=== PATIENT | female | born 1960 | race African-American/Black ===

== ENCOUNTER 2020-06-16 21:40 | Inpatient (IN) | payer MEDICARE ==
[~2020-06-16] VITALS: Ht 149.9 cm; Wt 86.3 kg
[2020-06-16] MEDS ORDERED: SODIUM CHLORIDE 0.9% 1,000 ML IV ONE (23:45)
[2020-06-17 00:05] LABS: BASOPHILS % 1.1 % (0.0-2.0); EOSINOPHILS % 0.8 % (0.0-5.0); HEMATOCRIT. 31.9 % (36.0-48.0); HEMOGLOBIN. 10.6 g/dL (12.0-16.0); LYMPHOCYTES % 26.3 % (20.0-50.0); MEAN CORPUSCULAR HEMOGLOBIN 24.4 pg (28.0-32.0); MEAN CORPUSCULAR VOLUME 73.3 fL (81.0-99.0); MEAN PLATELET VOLUME 8.1 fl (7.4-10.4); NEUTROPHILS % 63.8 % (40.0-76.0); PLATELET 207 x1000/uL (130-400); RED BLOOD CELL COUNT 4.35 mill/uL (4.2-5.4)
[2020-06-17 00:10] LABS: CHLORIDE 108 mEq/L (98-107)
[2020-06-17 00:14] LABS: ETHANOL BLOOD < 10 mg/dL
[2020-06-17 03:37] LABS: CLARITY URINE CLEAR (CLEAR); COLOR URINE YELLOW (YELLOW); KETONES URINE TRACE (NEGATIVE); LEUKOCYTE ESTERASE URINE NEGATIVE (NEGATIVE); NITRITE URINE NEGATIVE (NEGATIVE); OCCULT BLOOD URINE NEGATIVE (NEGATIVE); PROTEIN URINE TRACE (NEGATIVE); SPECIFIC GRAVITY URINE 1.025 (1.005-1.030)
[2020-06-17 03:48] LABS: *AMPHETAMINES SCREEN URINE NEGATIVE (NEGATIVE); *BARBITURATES SCREEN URINE NEGATIVE (NEGATIVE); *BENZODIAZEPINES SCREEN URINE NEGATIVE (NEGATIVE); *COCAINE SCREEN URINE NEGATIVE (NEGATIVE); METHADONE URINE SCREEN NEGATIVE (NEGATIVE)
[2020-06-17 03:49] LABS: CANNABINOID URINE SCREEN NEGATIVE (NEGATIVE); OPIATES URINE SCREEN NEGATIVE (NEGATIVE); PHENCYCLIDINE URINE SCREEN NEGATIVE (NEGATIVE)
[2020-06-17] MEDS: DEXAMETHASONE 4MG/ML 1ML VIAL IV SCH ×3 (08:00→20:32)
[2020-06-17] MEDS ORDERED: NICARDIPINE 100 MG in SODIUM CHLORIDE 0.9% 60 ML IV PRN (08:00)
[2020-06-17] MEDS ORDERED: ONDANSETRON HCL 4MG/2ML INJ IV PRN (08:45)
[2020-06-17] MEDS ORDERED: ACETAMINOPHEN 325MG TABLET PO PRN (08:45)
[2020-06-17] MEDS ORDERED: DEXTROSE 50% WATER 50ML SYRINGE IV PRN (08:45)
[2020-06-17 09:00] VITALS: BP_SYST 143; BP_SYST 163; BP_DIAS 81
[2020-06-17] MEDS ORDERED: LEVETIRACETAM 500MG PREMIX 100 ML IV SCH (09:00)
[2020-06-17] MEDS ORDERED: POTASSIUM CHLORIDE INJ 40 MEQ in DEXT 5% WATER 250 ML IV NR (10:30)
[2020-06-17] MEDS ORDERED: GADOTERATE MEGLUMINE 5 MMOL/10 ML VIAL IV ONE (10:42)
[2020-06-17] MEDS ORDERED: OMEP10CA5 MT (10:57)
[2020-06-17] MEDS ORDERED: AMLO10TA80 MT (10:57)
[2020-06-17] MEDS ORDERED: GLIP10TA10 MT (10:57)
[2020-06-17] MEDS ORDERED: INSLIS SUBCUT (10:57)
[2020-06-17] MEDS ORDERED: METO100T16 MT (10:57)
[2020-06-17] MEDS ORDERED: METF-416 MT (10:57)
[2020-06-17] MEDS ORDERED: QUET25TA MT (10:57)
[2020-06-17] MEDS ORDERED: TRAZ-251 MT (10:57)
[2020-06-17] MEDS ORDERED: KEPP500 MT (10:57)
[2020-06-17] MEDS ORDERED: LOSA100T32 MT (10:57)
[2020-06-17 12:00] VITALS: BP 141/74
[2020-06-17] MEDS: BLOOD SUGAR DIAGNOSTIC STRIP TEST SCH ×3 (12:20→20:39)
[2020-06-17] MEDS: INSULIN LISPRO 100 UNITS/ML SUBCUT SCH ×3 (12:55→20:46)
[2020-06-17] MEDS: LEVETIRACETAM 500MG PREMIX 100 ML IV SCH ×2 (14:58→20:31)
[2020-06-17 16:00] VITALS: BP 143/80
[2020-06-17 22:20] VITALS: BP 126/63
[2020-06-18] MEDS: DEXAMETHASONE 4MG/ML 1ML VIAL IV SCH ×2 (01:41→08:32)
[2020-06-18 02:04] VITALS: BP 138/81
[2020-06-18] MEDS: BLOOD SUGAR DIAGNOSTIC STRIP TEST SCH ×4 (05:22→21:59)
[2020-06-18 06:48] LABS: CHLORIDE 106 mEq/L (98-107)
[2020-06-18 06:58] LABS: BASOPHILS % 0.4 % (0.0-2.0); HEMATOCRIT. 34.7 % (36.0-48.0); MEAN CORPUSCULAR HEMOGLOBIN 23.4 pg (28.0-32.0); MEAN CORPUSCULAR VOLUME 73.8 fL (81.0-99.0); MEAN PLATELET VOLUME 8.1 fl (7.4-10.4); MONOCYTES % 1.2 % (2.0-8.0); NEUTROPHILS % 88.4 % (40.0-76.0); PLATELET 228 x1000/uL (130-400); RED CELL DISTRIBUTION WIDTH 20.9 % (11.6-14.6)
[2020-06-18 08:00] VITALS: BP 139/68
[2020-06-18] MEDS: LEVETIRACETAM 500MG PREMIX 100 ML IV SCH (08:35)
[2020-06-18] MEDS: INSULIN LISPRO 100 UNITS/ML SUBCUT SCH ×4 (08:46→22:07)
[2020-06-18 12:00] VITALS: BP 121/68
[2020-06-18] MEDS: LEVETIRACETAM 500MG TABLET PO SCH ×2 (12:03→21:59)
[2020-06-18 14:00] VITALS: BP 126/70
[2020-06-18] MEDS ORDERED: DEXAMETHASONE 4MG TABLET PO SCH (18:00)
[2020-06-19] MEDS: BLOOD SUGAR DIAGNOSTIC STRIP TEST SCH ×4 (06:58→21:02)
[2020-06-19] MEDS: INSULIN LISPRO 100 UNITS/ML SUBCUT SCH ×4 (07:50→21:04)
[2020-06-19 08:08] VITALS: BP 138/57
[2020-06-19] MEDS: LEVETIRACETAM 500MG TABLET PO SCH ×2 (08:42→21:03)
[2020-06-19] MEDS ORDERED: *PATIENT'S OWN MEDICATION STORAGE XX SCH (12:00)
[2020-06-19 12:35] VITALS: BP 147/65
[2020-06-19 16:24] VITALS: BP 108/54
[2020-06-19 20:00] VITALS: BP 132/68
[2020-06-20] VITALS: BP 126/68
[2020-06-20 04:00] VITALS: BP 153/79
[2020-06-20] MEDS: INSULIN LISPRO 100 UNITS/ML SUBCUT SCH ×2 (06:11→13:10)
[2020-06-20] MEDS: BLOOD SUGAR DIAGNOSTIC STRIP TEST SCH ×2 (06:11→12:20)
[2020-06-20 08:03] VITALS: BP 145/81
[2020-06-20] MEDS: LEVETIRACETAM 500MG TABLET PO SCH (09:10)
[2020-06-20 11:59] VITALS: BP 146/75
[2020-06-20 14:39] VITALS: BP 146/75
== END 2020-06-20 15:00 | DRG 54 ==
LOC: ER 21:40 → 6WST 06-17 01:51 → EDBEDREQ 06-17 02:22 → ENRESERV 06-17 07:11
PROVIDERS: ADMIT Internal Medicine; ATTEND Internal Medicine
DX: C79.31 Secondary malignant neoplasm of brain (principal); G93.41 Metabolic encephalopathy; G93.6 Cerebral edema; E44.1 Mild protein-calorie malnutrition; E87.6 Hypokalemia; Z20.822 Contact with and (suspected) exposure to COVID-19; C50.919 Malignant neoplasm of unspecified site of unspecified female breast; E87.8 Other disorders of electrolyte and fluid balance, not elsewhere classified; D64.9 Anemia, unspecified; E11.65 Type 2 diabetes mellitus with hyperglycemia; E66.9 Obesity, unspecified; I10 Essential (primary) hypertension; G40.909 Epilepsy, unspecified, not intractable, without status epilepticus; Z90.49 Acquired absence of other specified parts of digestive tract; Z68.38 Body mass index [BMI] 38.0-38.9, adult
CPT/HCPCS: 36415; 70553; 80048; 80053; 80305; 80320; 81003; 82140; 82962; 83605; 83880; 84484; 85025; 87426; 92610; 93005; 97161; 97166; 99285; A9577; C1893; J1100; J1815; J1953; J3480; J7030; J7040; J7060; G0480